=== PATIENT | female | born 1950 | race Two or more races ===

== ENCOUNTER → 2016-11-13 | Outpatient (CLI) | payer OTHER ==
--- NOTE | ~2016-11-13 | MY29 ---
[facility] A Service of [facility] / [facility] RADIOLOGY TEXT RESULTS PATIENT: RAQUEL MAR LOCATION: [facility] : 54 UNIT #: [id number] AGE: [address]: Deana Machado MD SEX: F ORDER DR: [id number] [facility] [address]. [place], [place] [address] [id number] O MR#: [id number] Acc #: [id number] NAME: RAQUEL MAR : 1950 SEX: F STUDY DATE/TIME: 11/13/2016 8:56 UNIT: [facility] ROOM: STUDY DESCRIPTION: MY [facility] SCREENING W/ CAD BILAT Attending Physician: Deana Machado M.D. Ordering Physician: Deana Machado M.D. Primary Care Physician: Deana Machado M.D. MEDICAL IMAGING REPORT This report is preliminary unless electronic signature is present EXAM Bilateral digital screening mammogram with CAD. Date: 11/13/2016 HISTORY 66-year-old female with no personal or family history breast cancer or current complaints. COMPARISON Bilateral screening mammogram 11/12/2015, 11/05/2014, 10/28/2013. FINDINGS CC and MLO views were obtained of each breast utilizing digital technique and reviewed with an FDA-approved CAD device. Heterogeneously dense fibroglandular tissue is present bilaterally. No suspicious nodule, architectural distortion or cluster of microcalcification is seen. Scattered benign-appearing calcifications are present bilaterally. IMPRESSION BIRADS category 2. Benign findings. Routine bilateral screening mammograms recommended in 1 year. Patients over the age of 40 are entered into a reminder system with target due date for the next mammogram. BIRADS: 2 Benign finding. Dictated by... Humera Cummings M.D. [facility] A Service [facility] RADIOLOGY TEXT RESULTS PATIENT: RAQUEL MAR LOCATION: [facility] : 54 UNIT #: [id number] AGE: [address]: Deana Machado MD SEX: F ORDER DR: THIS IS AN ELECTRONICALLY VERIFIED REPORT Humera Cummings M.D. at 11/14/2016 9:50 AM AURELIA/obdulio TD: 11/13/2016 16:49 JOB #: [id number] MEDICAL IMAGING REPORT Page 1 of 1 COPY
== END | disposition home or self-care (01) ==
LOC: CWCC 11-03 11:00
DX: Z12.31 Encounter for screening mammogram for malignant neoplasm of breast (principal)
CPT/HCPCS: G0202